=== PATIENT | female | born 1955 | race Caucasian/White ===

== ENCOUNTER 2024-10-07 18:13 | Emergency (ER) | payer MEDICARE, BC | END 2024-10-07 19:00 | disposition home or self-care (01) | LOC: JP.ED 18:13 | DX: S70.361A Insect bite (nonvenomous), right thigh, initial encounter (principal); Z79.899 Other long term (current) drug therapy; W57.XXXA Bitten or stung by nonvenomous insect and other nonvenomous arthropods, initial encounter | CPT/HCPCS: 99281; 99283 ==